=== PATIENT | male | born 1950 | race African-American/Black ===

== ENCOUNTER 2018-01-07 07:52 | Outpatient (CLI) | payer MEDICARE, BC ==
--- NOTE | 2018-01-07 10:05 | RAD ---
PA AND LATEARL VIEWS CHEST: HISTORY: Atrial fibrillation. FINDINGS: Comparison is made with the exam of 06/26/17. The heart size is enlarged. The lungs are expanded without focal areas of consolidation, pneumothora x, or pleural effusions. No parenchymal edema is seen. The nodular density in the left hilar region has been stable since 2007 and is related to prominent pulmonary vasculature. IMPRESSION: No acute process. POS: [facility]
== END 2018-01-07 07:53 | disposition home or self-care (01) ==
LOC: RAD 07:52
PROVIDERS: ATTEND Internal Medicine Cardiovascular Disease
DX: I48.91 Unspecified atrial fibrillation (principal); E78.00 Pure hypercholesterolemia, unspecified
CPT/HCPCS: 36415; 71046; 80053; 80061; 84443

== ENCOUNTER 2018-03-04 15:10 | Observation (INO) | payer MEDICARE, BC ==
[2018-03-04 15:43] LABS: #Basophils 0.1 thou/uL (0.0-0.2); #Eosinphils 0.2 thou/uL (0.0-0.7); #Lymphocytes 2.3 thou/uL (1.20-3.40); #Monocytes 0.7 thou/uL (0.11-0.59); #Neutrophils 6.7 thou/uL (1.40-6.50); %Basophils 0.6 % (0.0-1.0); %Eosinophils 2.4 % (0.0-10.0); %Lymphocytes 23.5 % (21.0-51.0); %Monocytes 6.8 % (0.0-10.0); %Neutrophils 66.7 % (42.0-75.0); Hemoglobin 14.6 g/dL (14.0-18.0); Mean Corpuscular HGB CONC 32.1 g/dL (32.0-36.0); Mean Corpuscular Hemoglobin 29.7 pg (27.0-31.0); Mean Corpuscular Volume 92.8 fl (80.0-94.0); Mean Platelet Volume 8.6 fL (7.4-10.4); Platelet Count 176 thou/uL (130-400); RBC Distribution Width 13.2 % (11.5-14.5); Red Blood Cell (RBC) Count 4.92 mill/uL (4.70-6.10)
[2018-03-04 15:53] LABS: ALT (SGPT) 23 U/L (8-55); AST (SGOT) 21 U/L (5-34); Albumin 4.4 g/dL (3.4-4.8); Alkaline Phosphatase 62 U/L (40-150); Anion Gap 12 mmol/L (10-20); BUN (Urea Nitrogen) 8 mg/dL (8.4-25.7); Bilirubin, Total 0.3 mg/dL (0.2-1.2); CK (CPK) 194 U/L (30-200); Calc. Creatinine Clearance 0 mL/min (70-130); Calcium 9.6 mg/dL (7.8-10.44); Carbon Dioxide 26 mmol/L (23-31); Chloride 104 mmol/L (98-107); Estimated GFR-MDRD Greater than 90; Globulin 3.2 g/dL (2.4-3.5); Glucose 100 mg/dL (80-115); Lipase 29 U/L (8-78); Potassium 4.4 mmol/L (3.5-5.1); Protein, Total 7.6 g/dL (5.8-8.1); Sodium 138 mmol/L (136-145)
[2018-03-04 15:56] LABS: CKMB 1.4 ng/mL (0-6.6); Troponin I Less than 0.010 ng/mL (< 0.028)
--- NOTE | 2018-03-04 16:28 | RAD ---
PORTABLE AP CHEST: Date: 03/04/18 HISTORY: Heart palpitations and chest pain. COMPARISON: 01/07/18. FINDINGS: Cardiac silhouette is enlarged. Epicardial fat pads are again seen at each lung base. Pulmonary vascu lature is within normal limits. The lungs are clear. There has been no interval change from prior exa m. IMPRESSION: No acute cardiopulmonary process. POS: [facility]
[2018-03-04 17:58] VITALS: BMI 45.0
[2018-03-04] MEDS ORDERED: Ondansetron HCl/PF 4 MG/2 ML Vial IVP PRN ×2 (18:08)
[2018-03-04] MEDS ORDERED: Mag-Al 1200 mg/1200 mg/30 ML UDCUP PO PRN (18:08)
[2018-03-04] MEDS ORDERED: Acetaminophen 325 MG TAB PO PRN (18:08)
[2018-03-04] MEDS ORDERED: Bisacodyl 5 MG TAB PO PRN (18:08)
[2018-03-04] MEDS ORDERED: hydrALAZINE 20 MG/ML VIAL SLOW IVP PRN (18:08)
[2018-03-04] MEDS ORDERED: Senokot 8.6 MG TAB PO PRN (18:08)
[2018-03-04] MEDS ORDERED: Calcium Carbonate 500 MG ChewTAB PO PRN (18:08)
[2018-03-04] MEDS ORDERED: traMADol HCl 50 MG TAB PO PRN (18:08)
[2018-03-04] MEDS ORDERED: Nitroglycerin 0.4 MG TAB (25 Tab Bottle) SL PRN (18:08)
[2018-03-04] MEDS ORDERED: cloNIDine 0.1 MG TAB PO PRN (18:08)
[2018-03-04] MEDS ORDERED: Loratadine 10 MG TAB PO PRN (18:08)
[2018-03-04] MEDS ORDERED: Benzonatate 100 MG CAP PO PRN (18:08)
[2018-03-04] MEDS ORDERED: Diabetic Tussin 200 MG/10 ML UDCUP PO PRN (18:08)
[2018-03-04] MEDS ORDERED: Lorazepam 1 MG TAB PO PRN (18:08)
--- NOTE | 2018-03-04 19:00 | HP ---
PRIMARY CARE PHYSICIAN: Efraín Irwin M.D. CHIEF COMPLAINT: Chest discomfort. HISTORY OF PRESENTING ILLNESS: Mr. Mcbride is a very pleasant 67-year-old male with past medica l history of hypertension, dyslipidemia, atrial fibrillation and lymphocytic esophagitis, who present ed to the emergency room with the above-mentioned complaint. History is mainly obtained by the patie nt himself and supplemented by the present in the room. Electronical medical records have been reviewed and the case has been discussed with the admitting ER physician. According to Mr. Mcbride, he has been feeling some dizziness, lightheadedness and palpitations s melissa yesterday. He has longstanding history of atrial fibrillation for the last 10 years. He report s that he underwent a cardiac catheterization and then subsequent cardioversion by Dr. Deleon for a bout 10 years ago and has been doing fairly well. Recently about 2 weeks ago, he was feeling palpita tion and was found to be back in atrial fibrillation. At that time, he was undergoing an EGD for his complaints of dysphagia. He is under the care of Dr. Velazquez for the same. He was found to be in at rial fibrillation at the time of EGD and was referred back to Dr. Deleon. He saw Dr. Deleon 2 we eks ago and was started on Xarelto. He reports that he monitors his blood pressure and heart rate on a daily basis and his blood pressure has been running in the 140s to 150s upper range and his heart rate in the 50s-60s. Since yesterday, he has been having on and off palpitations, dizziness, tiredness and weakness. Toda y, he had significant amount of chest discomfort that would come and go. It was associated with some shortness of breath and continued palpitations and dizziness. He denies any radiation of the pain. It was in the center of the chest and he describes it as a squeezing sensation. He came to the [facility] with this complaint and was found to be quite hypertensive with systolic blood pressure mo re than 200 and diastolic more than 9200. In the ER, his initial workup included a 12-lead EKG, whic h showed normal sinus rhythm with prolonged QT interval of 500 milliseconds for QTc. Other than unco ntrolled hypertension, his blood work was rather unremarkable. His chest x-ray was clear. He otherwise denies any recent illnesses. He denies any orthopnea or PND. He always has the swellin g in his legs, which he reports that has not changed. He denies any fever, chills or shortness of br eath. He denies any dyspnea on exertion. He is compliant with his medications. Please note that he was recently started on combination of naltrexone with bupropion by his pin ticket machine operator, Dr. Sanches in [place] to promote weight loss, so he can have relief from his symptoms of acid reflux. He has undergone E GD at least 2 or 3 times and still remains symptomatic with difficulty due to medicines and feelings of food getting stuck in his throat. He is now being admitted for further workup of his chest pain. PAST MEDICAL HISTORY: 1. Atrial fibrillation. 2. Hypertension. 3. Dyslipidemia. 4. Borderline diabetes mellitus. 5. Obesity. 6. Lymphocytic esophagitis as diagnosed by EGD about 2 weeks ago. PAST SURGICAL HISTORY: 1. Cardiac catheterization. 2. History of cardioversion 10 years ago. 3. Multiple EGDs. 4. Left knee surgery. PSYCHIATRIC HISTORY: None. SOCIAL HISTORY: He has quit smoking and chewing tobacco about 30 years ago. No drug or alcohol abus e. FAMILY HISTORY: The patient has been kind of estranged from his family for the last 30 or 40 years. He does not know the medical history of his family at all. ALLERGIES: No known medication allergies. CURRENT MEDICATIONS: Xarelto 20 mg daily, prednisone 20 mg daily p.r.n. for eczema, meloxicam 50 mg daily, Protonix 40 mg b.i.d., aspirin 81 mg daily, atorvastatin 80 mg daily, amiodarone 200 mg daily, Klor-Con 10 mEq daily, hydralazine 100 mg b.i.d., amlodipine with valsartan combination 5/320 mg eugenio ly and Lasix 80 mg b.i.d. REVIEW OF SYSTEMS: The following complete review of systems was negative, unless otherwise mentioned in the HPI or below: Constitutional: Weight loss or gain, ability to conduct usual activities. Skin: Rash, itching. Eyes: Double vision, pain. ENT/Mouth: Nose bleeding, neck stiffness, pain, tenderness. Cardiovascular: Palpitations, dyspnea on exertion, orthopnea. Respiratory: Shortness of breath, wheezing, cough, hemoptysis, fever or night sweats. Gastrointestinal: Poor appetite, abdominal pain, heartburn, nausea, vomiting, constipation, or diarr hea. Genitourinary: Urgency, frequency, dysuria, nocturia. Musculoskeletal: Pain, swelling. Neurologic/Psychiatric: Anxiety, depression. Allergy/Immunologic: Skin rash, bleeding tendency. LABORATORY AND IMAGING EXAMINATION: CBC is unremarkable. Serum chemistry is unremarkable. CK-MB 1. 4, troponin less than 0.010 x1. Chest x-ray by my review has no evidence to suggest pulmonary edema, effusion or infiltrate. A 12-lead EKG by my review shows normal sinus rhythm at 75 beats per minute , QTc interval of [address] or T-wave changes. PHYSICAL EXAMINATION: VITAL SIGNS: Upon presentation, blood pressure 217/91, temperature 98.8, pulse of 75, respirations 2 0 and saturating 95% on room air. GENERAL: Sitting up on the side of the bed. No acute distress. Awake, alert and oriented x3, very pleasant. HEENT: Mucous membrane is moist and pink. No oropharyngeal exudate or erythema. Head is normocepha lic, atraumatic. Pupils are equal, reactive to light and accommodation. Extraocular movement intact . NECK: Supple without any lymphadenopathy or JVD. CHEST: Clear to auscultation without any wheezing, rales or rhonchi. Rate and rhythm is regular wit hout any murmur, rubs or gallops. ABDOMEN: Soft, nontender and nondistended with positive bowel sounds. No guarding, rebound or rigid ity. EXTREMITIES: Show pitting edema bilaterally in the lower extremities extending up to mid-calf. NEUROLOGIC: Nonfocal. SKIN: Free of any rashes or bruises. Feel warm and dry to touch. PSYCHIATRIC: Normal affect. IMPRESSION AND PLAN: 1. Chest pain. Most likely this is because of uncontrolled hypertension that the patient came with. He has a normal cardiac catheterization done 10 years ago and he is a nonsmoker. The other possibil ity is recurrent paroxysmal atrial fibrillation. At this time, we will obtain a transthoracic echoca rdiogram to ascertain his cardiac function and any valvular abnormality that might be causing uncontr olled hypertension and atrial fibrillation. We will continue to trend serial cardiac enzyme and cont inue aspirin, Lipitor and valsartan at this time. We will also continue his Lasix. He does not appe ar to be in any fluid overload. We will request consultation with his credit coordinator, Dr. Deleon, in the morning. We will make him n.p.o. after midnight in case he needs to get a nuclear medicine stre ss test done as per his recommendations. He reports that he has the cardiac stress test done, but it was a few years ago. At this time, we will hold off on the stress test as his symptoms are not very typical. He will be admitted overnight on telemetry unit to check for any arrhythmias. Sublingual nitroglycerin will be used as needed if his symptoms happen again. At this time, aggressive blood pr essure control needs to be instituted. Some of his symptoms might be secondary to his known history of gastroesophageal reflux disease and dysphagia. At this time, we will continue his proton pump inh ibitor and add H2 blockers to see if he gets any relief. 2. Uncontrolled hypertension. The patient's blood pressure has been fairly well controlled in the o utpatient setting. With his new hypertensive urgency, I suspect that his naltrexone/bupropion might be responsible for some of these effects including the palpitations and uncontrolled hypertension. I have discussed this with the patient and I would recommend stopping this medication. He reports franko t it was prescribed to him by the Physician Hearing Stenographer for the allergies he is seeing. I advised him to discuss this further with his Metal Casket Assembler, Dr. Deleon and his Window Glazier Helper, Dr. Velazquez. 3. Recurrent paroxysmal atrial fibrillation. The patient is currently in normal sinus rhythm but gi ves history of palpitations. He might require a Holter monitor and repeat cardioversion and further evaluation. At this time, we will get the echocardiogram and consult Cardiology for their recommenda tions. Continue his Xarelto. He is rate controlled on amiodarone and we will continue that as well 4. Borderline diabetes mellitus. His blood sugar will be monitored on a daily basis. 5. History of dyslipidemia. We will restart his atorvastatin. 6. Hypertension. Restart home medications and add p.r.n. medications for better blood pressure cont rol. 7. Morbid obesity. BMI not yet calculated. 8. Lymphocytic esophagitis as diagnosed 2 weeks ago by pathology. Continue his proton pump inhibito r as above. 9. CODE STATUS: FULL CODE discussed with the patient. 10. Deep venous thrombosis and gastrointestinal prophylaxis with continuation of Xarelto and proton pump inhibitor. DISPOSITION: Mr. Mcbride is currently being admitted to the hospital for complaints of uncontro lled hypertension and chest pain. Further management will depend upon his clinical course and Cardio logy recommendations.
[2018-03-04 19:22] LABS: Troponin I 0.012 ng/mL (< 0.028)
[2018-03-04] MEDS: hydrALAZINE 25 MG TAB PO SCH (20:44)
[2018-03-04] MEDS: Famotidine 20 MG TAB PO SCH (20:45)
[2018-03-04] MEDS: Atorvastatin Calcium 40 MG TAB PO SCH (20:45)
[2018-03-05 05:54] LABS: #Basophils 0.1 thou/uL (0.0-0.2); #Eosinphils 0.3 thou/uL (0.0-0.7); #Lymphocytes 1.6 thou/uL (1.20-3.40); #Monocytes 0.6 thou/uL (0.11-0.59); #Neutrophils 4.5 thou/uL (1.40-6.50); %Basophils 0.7 % (0.0-1.0); %Lymphocytes 22.4 % (21.0-51.0); %Monocytes 8.6 % (0.0-10.0); %Neutrophils 64.2 % (42.0-75.0); Hemoglobin 13.3 g/dL (14.0-18.0); Mean Corpuscular HGB CONC 31.5 g/dL (32.0-36.0); Mean Corpuscular Hemoglobin 28.3 pg (27.0-31.0); Mean Corpuscular Volume 90.1 fl (80.0-94.0); Mean Platelet Volume 7.4 fL (7.4-10.4); Platelet Count 255 thou/uL (130-400); RBC Distribution Width 13.1 % (11.5-14.5); White Blood Cell (WBC) Count 6.9 thou/uL (4.8-10.8)
[2018-03-05] MEDS ORDERED: Rivaroxaban 10 MG TAB PO SCH ×2 (06:00→17:00)
[2018-03-05 06:02] LABS: Anion Gap 10 mmol/L (10-20); BUN (Urea Nitrogen) 9 mg/dL (8.4-25.7); Calc. Creatinine Clearance 164 mL/min (70-130); Calcium 8.9 mg/dL (7.8-10.44); Carbon Dioxide 27 mmol/L (23-31); Chloride 106 mmol/L (98-107); Estimated GFR-MDRD Greater than 90; Glucose 93 mg/dL (80-115); Potassium 3.3 mmol/L (3.5-5.1); Sodium 140 mmol/L (136-145)
[2018-03-05] MEDS: Amlodipine 5 MG TAB PO SCH (09:12)
[2018-03-05] MEDS: Aspirin 81 mg Enteric Coated Tablet PO SCH (09:12)
[2018-03-05] MEDS: Amiodarone 200 MG TAB PO SCH (09:12)
[2018-03-05] MEDS: Valsartan 80 MG TAB PO SCH (09:13)
[2018-03-05] MEDS: hydrALAZINE 25 MG TAB PO SCH ×2 (09:13→19:59)
[2018-03-05] MEDS: Furosemide 80 MG TAB PO SCH ×2 (09:13→14:16)
[2018-03-05] MEDS ORDERED: predniSONE 20 MG TAB PO PRN (10:41)
--- NOTE | 2018-03-05 10:45 | PDOC.PN ---
- Subjective Encounter Start Date: 03/05/18 Encounter Start Time: 10:43 Subjective: exercise related chest tightness - Objective MAR Reviewed: Yes Vital Signs & Weight: Vital Signs (12 hours) Temp Pulse Resp BP BP Pulse Ox 03/05/18 09:13 52 L 173/80 H 03/05/18 09:12 52 L 173/80 H 03/05/18 07:48 97.9 F 52 L 16 173/80 H 93 L 03/05/18 07:15 97.9 F 52 L 16 03/05/18 03:33 98.1 F 54 L 16 138/67 94 L 03/05/18 00:05 61 18 137/69 96 Weight Weight 296 lb 4.8 oz I&O: 03/04/18 03/05/18 03/06/18 06:59 06:59 06:59 Intake Total 600 Balance 600 Result Diagrams: 03/05/18 05:26 03/05/18 05:26 Phys Exam - Physical Examination Constitutional: NAD Neck: no JVD Respiratory: clear to auscultation bilateral Cardiovascular: RRR, no significant murmur Gastrointestinal: soft, non-tender, positive bowel sounds Musculoskeletal: no edema Dx/Plan (1) Chest pain Code(s): R07.9 - CHEST PAIN, UNSPECIFIED Status: Acute Qualifiers: Chest pain type: precordial pain Qualified Code(s): R07.2 - Precordial pain (2) HTN (hypertension) Code(s): I10 - ESSENTIAL (PRIMARY) HYPERTENSION Status: Chronic Qualifiers: Hypertension type: essential hypertension Qualified Code(s): I10 - Essential (primary) hypertension (3) Atrial fibrillation, controlled Code(s): I48.91 - UNSPECIFIED ATRIAL FIBRILLATION Status: Chronic (4) Anticoagulant long-term use Code(s): Z79.01 - ACCOUNT AUDITOR (CURRENT) USE OF ANTICOAGULANTS Status: Chronic - Plan no st-t abn on EKG, trops nl x2 -: stress test -: cont home meds -: discussed with Dr Deleon * .
[2018-03-05] MEDS: Famotidine 20 MG TAB PO SCH ×2 (11:31→21:27)
[2018-03-05] MEDS ORDERED: Non-Formulary Item 1 EACH (Rivaroxaban [Xarelto] 20 MG) PO SCH ×2 (17:00)
[2018-03-05] MEDS: Mometasone 200 MCG HFA INHALER INH SCH (19:50)
[2018-03-05] MEDS: Atorvastatin Calcium 40 MG TAB PO SCH (19:59)
[2018-03-05] MEDS: Latanoprost 0.005% Ophth Soln 2.5 ml Bottle EA EYE SCH (20:00)
[2018-03-05] MEDS ORDERED: Non-Formulary Item 1 EACH (Hydralazine Hcl [Hydralazine Hcl] 100 MG) PO SCH ×2 (21:00)
[2018-03-05] MEDS ORDERED: BUDESONIDE 1 MG IH SCH ×2 (21:00)
[2018-03-05] MEDS ORDERED: NALTREXONE HCL PO SCH (21:00)
[2018-03-05] MEDS ORDERED: ESOMEPRAZOLE MAGNESIUM 40 MG PO SCH (21:00)
[2018-03-05] MEDS ORDERED: Furosemide 80 MG TAB PO SCH (21:00)
[2018-03-05] MEDS ORDERED: BUPROPION HCL PO SCH (21:00)
[2018-03-06] MEDS ORDERED: Potassium Chloride 10 MEQ TAB PO SCH ×2 (09:00)
[2018-03-06] MEDS ORDERED: Aspirin 81 mg Enteric Coated Tablet PO SCH (09:00)
[2018-03-06] MEDS ORDERED: Amiodarone 200 MG TAB PO SCH (09:00)
[2018-03-06] MEDS ORDERED: Non-Formulary Item 1 EACH (Atorvastatin Calcium [Atorvastatin Calcium] 80 MG) PO SCH ×2 (09:00)
[2018-03-06] MEDS: Valsartan 80 MG TAB PO SCH (10:18)
[2018-03-06] MEDS: Furosemide 80 MG TAB PO SCH ×2 (10:19→13:41)
[2018-03-06] MEDS: Amlodipine 5 MG TAB PO SCH (10:19)
[2018-03-06] MEDS: Aspirin 81 mg Enteric Coated Tablet PO SCH (10:19)
[2018-03-06] MEDS: Meloxicam 15 MG TAB PO SCH (10:19)
[2018-03-06] MEDS: Famotidine 20 MG TAB PO SCH ×2 (10:20→20:40)
[2018-03-06] MEDS: Amiodarone 200 MG TAB PO SCH (10:20)
[2018-03-06] MEDS: hydrALAZINE 25 MG TAB PO SCH ×2 (10:28→20:40)
--- NOTE | 2018-03-06 11:45 | PDOC.PN ---
- Subjective Encounter Start Date: 03/06/18 Encounter Start Time: 11:44 Subjective: feels ok - Objective MAR Reviewed: Yes Vital Signs & Weight: Vital Signs (12 hours) Temp Pulse Resp BP Pulse Ox 03/06/18 10:54 97.9 F 54 L 20 181/81 H 95 03/06/18 07:48 98.1 F 59 L 16 03/06/18 07:05 98 F 51 L 16 163/72 H 93 L 03/06/18 03:59 98.1 F 59 L 16 130/62 92 L Weight Weight 295 lb 14.4 oz I&O: 03/05/18 03/06/18 03/07/18 06:59 06:59 06:59 Intake Total 600 1510 Output Total 2650 200 Balance 600 -1140 -200 Result Diagrams: 03/05/18 05:26 03/05/18 05:26 Phys Exam - Physical Examination Neck: no JVD Respiratory: clear to auscultation bilateral Cardiovascular: RRR, no significant murmur Gastrointestinal: soft, non-tender, positive bowel sounds Musculoskeletal: no edema Dx/Plan (1) Chest pain Code(s): R07.9 - CHEST PAIN, UNSPECIFIED Status: Acute Qualifiers: Chest pain type: precordial pain Qualified Code(s): R07.2 - Precordial pain (2) HTN (hypertension) Code(s): I10 - ESSENTIAL (PRIMARY) HYPERTENSION Status: Chronic Qualifiers: Hypertension type: essential hypertension Qualified Code(s): I10 - Essential (primary) hypertension (3) Atrial fibrillation, controlled Code(s): I48.91 - UNSPECIFIED ATRIAL FIBRILLATION Status: Chronic (4) Anticoagulant long-term use Code(s): Z79.01 - HAT MODEL (CURRENT) USE OF ANTICOAGULANTS Status: Chronic - Plan stress test pending , no reversible defect. echo- nl LVEF -: BP labile * .
--- NOTE | 2018-03-06 14:15 | NM ---
NUCLEAR MEDICINE CARDIAC MYOCARDIAL PERFUSION SPECT EJECTION FRACTION STUDY WALL MOTION CINE: DATE: 03/06/18. HISTORY: A 67-year-old male with chest pain. TECHNIQUE: Number of days: 2. Rest study: Tc99m sestamibi (Cardiolite) dose: 27.0 mCi. Pharmacologic stress: adenosine dose: 75.6 mg. Stress study: Tc99m sestamibi (Cardiolite) dose: 30.9 mCi. FINDINGS: CARDIAC (MYOCARDIAL PERFUSION) SPECT There is a small fixed perfusion defect at the apex, extending a short distance posteriorly into the apicoinferior region. No reversible defect is identified. EJECTION FRACTION STUDY EF = 51% WALL MOTION CINE No focal wall motion abnormality identified. IMPRESSION: 1. No evidence of reversible ischemia. 2. Small apical fixed defect, suggestive of infarction or scar in that location. CARLIN Cole POS: [facility]
--- NOTE | 2018-03-06 14:55 | CON ---
DATE OF CONSULTATION: 03/06/2018 HISTORY: Mr. Javier Mcbride is a 67-year-old -[place] male that I initially evaluated in 08/2003 for palpitations and chest discomfort. When he would be seen at rest, he would feel like thump in his chest, which would last approximately for 1 second. At other times, he would feel chest tightness that would occur with and without exertion and would last approximately 1 minute. He unde rwent Holter monitor, which revealed frequent PVCs, but no evidence of ventricular tachycardia. He d id have occasional supraventricular ectopic beats. He also would have episodes of occasional suprave ntricular tachycardia up to 140 per minute, but was asymptomatic with that. He underwent stress echo testing and exercised for 9 minutes, had no chest discomfort or ST segment changes. EKG was negativ e for ischemia. Echo revealed normal wall motion with ejection fraction of 55%-60% and no evidence o f stress induced ischemia. He had significant caffeine intake at that time, it was recommended that he reduce that and if palpitations continued, then he should be placed on a beta [place]. I did not see him again until 02/2008. He did notice that his heart was fluttering and he also notic ed this more at rest. At times, he would have chest discomfort at rest with the heart fluttering. T his has been occurring for approximately 4 months. When he saw Dr. Irwin, he was found to be in atr ial fibrillation and was placed on Coumadin. He also states his blood pressure had not been well con trolled. He was placed on atenolol 25 mg q.a.m and he stated that his heart was not racing as much a fter starting that. He denied any syncope, lightheadedness or dyspnea on exertion. He did have ches t discomfort and underwent adenosine Cardiolite testing, which revealed inferior and lateral wall isc hemia with ejection fraction of 47% with mild global hypokinesis and moderate decreased myocardial th ickening of the inferior wall. Echo revealed normal left ventricular function with ejection fraction of 50%-55% with moderate mitral regurgitation, mild tricuspid regurgitation and mild pulmonic regurg itation. He underwent cardiac catheterization on 04/21/2008 after his Coumadin was stopped for 4-5 days. This revealed mild left ventricular dysfunction with ejection fraction of 40%-45% and mild mitral regurgi tation. There was a 30% LAD stenosis and mild plaque in the right coronary artery. He was hydrated and then discharged and started back on Coumadin. Numerous options were discussed multiple times about his atrial fibrillation including anticoagulatio n and rate control alone. We discussed electrical cardioversion alone versus adding amiodarone. Ovgeorge geraldo, it was recommended that he be admitted and he was loaded with amiodarone prior to electrical ca rdioversion since he has been in atrial fibrillation, possibly 6 months. The risks of amiodarone the rapy were discussed including , lung toxicity, liver toxicity, thyroid toxicity, eye deposits et c. He understood and agreed to proceed and in 05/2008, he was loaded with amiodarone 400 mg t.i.d. f or 3.5 days. He underwent transesophageal echocardiography, which revealed no evidence of intracardi ac thrombus. He underwent electrical cardioversion. With 200 joules, he remained in atrial fibrilla tion and with 300 joules, he converted to sinus rhythm. He was monitored overnight and did have epis odes of bradycardia with heart rates in the upper 40s, but was asymptomatic with that. Since that time, he has remained in normal sinus rhythm except for an episode of atrial fibrillation during an EGD. His blood pressure at times has been difficult to control as well as his hypercholest erolemia, but overall he has been asymptomatic for the last almost 10 years. He then on the day of a dmission, started to have episodes of chest tightness. This would occur at rest and last approximate ly 30 seconds, but never longer. He also has problems with GERD and has undergone esophageal dilatat ion in the past. He continued to have these episodes and came to the hospital for further evaluation . PAST MEDICAL HISTORY: Hypertension, hypercholesterolemia, borderline diabetes mellitus, atrial fibri llation, but says in sinus rhythm for the last 10 years, obesity, lymphocytic esophagitis. OPERATIONS: Right knee surgery, multiple EGDs, electrical cardioversion. SOCIAL HISTORY: He smoked 1-2 packs per day, but stopped approximately 30 years ago. He also stoppe d drinking alcohol 30 years ago. He had quite a high caffeine intake in the past, drinking 5-10 cups coffee per day as well as 1-2 diet cokes per day; however, he has cut way back on that. He worked a [employer] in the past. FAMILY HISTORY: Father of myocardial infarction at age 68. No family history of CABG or sudden . REVIEW OF SYSTEMS: Twelve point review of systems otherwise is unremarkable. PHYSICAL EXAMINATION: VITAL SIGNS: Blood pressure 159/74, pulse of 64. HEENT: PERRL. NECK: Supple. There is no jugular venous distention. LUNGS: Chest is clear. CARDIAC: S1, S2 normal, without any S3, S4 or murmurs. Carotid upstrokes normal without bruits. ABDOMEN: Normal bowel sounds, without tenderness or organomegaly. The abdomen is obese. EXTREMITIES: Revealed no clubbing, cyanosis or edema. NEUROLOGIC: Grossly intact. SKIN: Warm and dry. LABORATORY DATA AND IMAGING: EKG revealed normal sinus rhythm with prolonged QT, but otherwise unrem arkable. Hemoglobin 13.3, hematocrit 42.4, white count 6900, platelets 255,000. Sodium 138, potassi um 4.4, chloride 104, carbon dioxide 26, BUN 8, creatinine 0.91. Cardiac enzymes are normal. IMPRESSION: 1. Atypical chest discomfort with pain lasting only 30 seconds, not related to exertion. He has had negative cardiac enzymes. 2. History of atrial fibrillation with cardioversion in 05/2008 since he remained in sinus rhythm si nce that time. However, he has been maintained on Xarelto and amiodarone. 3. Minimal coronary artery disease on catheterization in 04/2008. 4. Hypertension, poorly controlled. 5. Hypercholesterolemia, which has been under poor control. 6. Former smoker. 7. Positive family history. 8. High caffeine intake in the past. 9. Lymphocytic esophagitis with history of esophageal dilatation. 10. History of borderline diabetes. 11. Morbid obesity. RECOMMENDATIONS: Antihypertensive medications will be increased. He will undergo Cardiolite testing to further evaluate his atypical chest discomfort. Xarelto will be held since he is in normal sinus rhythm at this time and may potentially require cardiac catheterization depending upon the outcome o f the two day Cardiolite testing.
[2018-03-06] MEDS ORDERED: Amlodipine 5 MG TAB PO SCH (19:00)
[2018-03-06] MEDS: Mometasone 200 MCG HFA INHALER INH SCH (19:52)
[2018-03-06] MEDS: Atorvastatin Calcium 40 MG TAB PO SCH (20:40)
[2018-03-06] MEDS: Latanoprost 0.005% Ophth Soln 2.5 ml Bottle EA EYE SCH (20:41)
[2018-03-07 05:01] LABS: Platelet Count 241 thou/uL (130-400)
[2018-03-07 07:42] VITALS: TEMP 98.3
[2018-03-07] MEDS: hydrALAZINE 25 MG TAB PO SCH (08:07)
[2018-03-07] MEDS: Amiodarone 200 MG TAB PO SCH (08:08)
[2018-03-07] MEDS: Famotidine 20 MG TAB PO SCH (08:09)
[2018-03-07] MEDS: Valsartan 80 MG TAB PO SCH (08:09)
[2018-03-07] MEDS: Meloxicam 15 MG TAB PO SCH (08:09)
[2018-03-07] MEDS: Aspirin 81 mg Enteric Coated Tablet PO SCH (08:10)
[2018-03-07] MEDS: Furosemide 80 MG TAB PO SCH (08:10)
[2018-03-07] MEDS ORDERED: Amlodipine 10 MG TAB PO SCH (09:00)
[2018-03-07 09:41] VITALS: BP 149/72
--- NOTE | 2018-03-07 12:50 | DIS ---
DATE OF ADMISSION: 03/04/2018 DATE OF DISCHARGE: 03/07/2018 PRIMARY CARE PROVIDER: Dr. Efraní Irwin. DISCHARGE DISPOSITION: Home. FINAL DIAGNOSES: Chest pain, noncardiac; hypertension, uncontrolled; atrial fibrillation; dyslipidemia; chronic anticoagulation; lymphocytic esophagitis. DISCHARGE MEDICATIONS: Budesonide 1 mg inhaled twice a day, Lasix 80 mg twice a day, hydralazine 100 mg twice a day, Klor-Con 10 mEq a day, Cordarone 200 mg a day, prednisone 20 mg a day, atorvastatin 80 mg a day, Meloxicam 15 mg a day, Contrave 2 b.i.d., Xarelto 20 mg twice a day, Nexium 40 mg a day, aspirin 81 mg a day, amlodipine/valsartan 10/320 once a day. ALLERGIES: No known drug allergies. PENDING AT THE TIME OF DISCHARGE: Nothing. CODE STATUS: FULL. HOSPITAL COURSE: [facility] with chest discomfort with exertion. LABORATORY DATA AND IMAGING: At the time of admission, cardiac enzymes were normal x3. Comprehensive metabolic profile was normal. CBC was unremarkable. Dr. Vu Deleon was consulted, his efficiency clerk. Nuclear medicine stress test was done, which revealed only a fixed defect, no wall motion abnormality, no reversible defect. Echocardiogram was done, which revealed LVEF of 50%-55%, some suggestion of diastolic dysfunction. DISCHARGE INSTRUCTIONS: The patient's blood pressure medicines were adjusted. Currently, he is feeling well, is doing well. He is being discharged for daily blood pressure medicine and to be followed up by Dr. Deloen in 1 month for followup. It has been recommended that he follow up with his PCP, Dr. Efraín Irwin in 1 week. No procedures were done. [facility]
== END 2018-03-07 11:00 | disposition home or self-care (01) ==
LOC: ERS 15:10 → 2SW 16:37
PROVIDERS: ADMIT Internal Medicine; ATTEND Internal Medicine
DX: R07.89 Other chest pain (principal); I10 Essential (primary) hypertension; E78.5 Hyperlipidemia, unspecified; K20.8 Other esophagitis; R73.03 Prediabetes; E66.01 Morbid (severe) obesity due to excess calories; I48.0 Paroxysmal atrial fibrillation; E78.00 Pure hypercholesterolemia, unspecified; I25.10 Atherosclerotic heart disease of native coronary artery without angina pectoris; Z68.41 Body mass index [BMI] 40.0-44.9, adult; Z79.01 Long term (current) use of anticoagulants; Z79.82 Long term (current) use of aspirin; Z79.1 Long term (current) use of non-steroidal anti-inflammatories (NSAID); Z79.899 Other long term (current) drug therapy; Z98.890 Other specified postprocedural states; Z87.891 Personal history of nicotine dependence
CPT/HCPCS: 71045; 78452; 80048; 80053; 82550; 82553; 82565; 83690; 84484 ×2; 85014; 85018; 85025 ×2; 85049; 93005; 93017; 93306; 94640 ×2; 94664; 94760; 96374; 97139 ×3; 99285; A9500; G0378 ×2; 36415; J0153; J0360

== ENCOUNTER 2018-06-20 09:12 | Outpatient (CLI) | payer MEDICARE, BC ==
--- NOTE | 2018-06-20 10:53 | RAD ---
CHEST PA AND LATERAL: History: 67-year-old male with history of coronary artery disease. Comparison: 01-07-18 FINDINGS: Upper range of normal sized heart. No confluent pneumonia, overt edema, or pleural effusion. Biapical pleural thickening. IMPRESSION: No significant acute intrathoracic disease. Borderline sized heart. Biapical pleural thickening, stab le. Atherosclerosis of the aorta. POS: [facility]
== END 2018-06-20 09:13 | disposition home or self-care (01) ==
LOC: RAD 09:12
PROVIDERS: ATTEND Internal Medicine Cardiovascular Disease
DX: I25.10 Atherosclerotic heart disease of native coronary artery without angina pectoris (principal); I70.0 Atherosclerosis of aorta; J92.9 Pleural plaque without asbestos
CPT/HCPCS: 36415; 71046; 80053; 80061; 84443

== ENCOUNTER 2019-01-29 07:54 | Outpatient (CLI) | payer MEDICARE, BC ==
--- NOTE | 2019-01-29 08:14 | RAD ---
TWO VIEWS CHEST: HISTORY: Heart disease. FINDINGS: PA and lateral views of the chest are obtained on 01/29/2019. Comparison is made to previous exam fro m 06/20/2018. Two views chest demonstrate mild cardiomegaly. Pulmonary vascular congestion is seen. No evidence o f effusions, pneumonia, or pneumothorax is seen. IMPRESSION: Cardiomegaly and pulmonary vascular congestion. POS: [facility]
== END 2019-01-29 07:55 | disposition home or self-care (01) ==
LOC: RAD 07:54
PROVIDERS: ATTEND Internal Medicine Cardiovascular Disease
DX: I25.10 Atherosclerotic heart disease of native coronary artery without angina pectoris (principal); R09.89 Other specified symptoms and signs involving the circulatory and respiratory systems; I51.7 Cardiomegaly; Z82.49 Family history of ischemic heart disease and other diseases of the circulatory system
CPT/HCPCS: 36415; 71046; 80053; 80061; 82043; 83036; 84443

== ENCOUNTER 2019-09-11 08:10 | Outpatient (CLI) | payer MEDICARE, BC ==
--- NOTE | 2019-09-11 08:35 | RAD ---
XR Chest Pa Lat @ [facility] HISTORY: Atrial fibrillation COMPARISON: 01/29/2019 FINDINGS: The heart size is enlarged. The lungs are well expanded without focal areas of consolidatio n, pneumothorax or pleural effusions.There is no evidence of lucie pulmonary edema. IMPRESSION: No radiographic evidence of acute cardiopulmonary process.
== END 2019-09-11 08:11 | disposition home or self-care (01) ==
LOC: RAD 08:10
PROVIDERS: ATTEND Internal Medicine Cardiovascular Disease
DX: I48.91 Unspecified atrial fibrillation (principal)
CPT/HCPCS: 36415; 71046; 80053; 80061; 84443

== ENCOUNTER 2020-09-21 06:24 | Outpatient (CLI) | payer MEDICARE, BC ==
[2020-09-22 12:56] LABS: SARS-CoV-2 MS2 Positive; SARS-CoV-2 N Gene Negative; SARS-CoV-2 S Gene Negative; SARS-CoV-2 by NAA Not Detected (NotDetected); SARS-CoV-2 orf1ab Negative
== END 2020-09-21 06:25 | disposition home or self-care (01) ==
LOC: LABBT 06:24
PROVIDERS: ATTEND Internal Medicine Gastroenterology
DX: K21.00 Gastro-esophageal reflux disease with esophagitis, without bleeding (principal); Z86.010 Personal history of colon polyps; Z20.828 Contact with and (suspected) exposure to other viral communicable diseases
CPT/HCPCS: 87635; U0003

== ENCOUNTER 2020-09-24 06:52 | Day surgery (SDC) | payer MEDICARE, BC ==
[2020-09-23 10:44] VITALS: BMI 47.0
[2020-09-24] MEDS ORDERED: Lidocaine 1% PF 5 ML VIAL ONE (10:14)
[2020-09-24] MEDS ORDERED: PROPOFOL 200 MG/20 ML VIAL ONE (10:14)
--- NOTE | 2020-09-24 10:49 | OP ---
DATE OF PROCEDURE: 09/24/2020 PREPROCEDURE DIAGNOSES: 1. History of lymphocytic esophagitis. 2. Personal history of colon polyps. 3. Dysphagia. PROCEDURES PERFORMED: 1. Esophagogastroduodenoscopy with biopsy of esophagus and dilatation with 54 and 60-[place] German dilators. 2. Colonoscopy and polypectomy. POSTPROCEDURE DIAGNOSES: 1. Mild distal esophagitis. Biopsy of the GE junction, distal third of the esophagus, atypical appearance, consistent with prior diagnosis of lymphocytic rule out Barney's. 2. Effective dilatation noted after dilation with the 60-[place] dilator in the pharyngeal region with mucosal laceration, no perforation. 3. Two polyps in the ascending colon, 5 mm in size, removed by cold snare polypectomy and submitted to Pathology. RECOMMENDATIONS: 1. Repeat colonoscopy in 5 years. 2. Await histopathology. 3. Follow up in the office in 6 weeks. ANESTHESIA: TIVA. DESCRIPTION OF PROCEDURE: After the patient was informed of the risks, benefits, and possible complications of endoscopy including perforation, bleeding, reaction to medication, aspiration, informed consent was obtained. The patient was brought to endoscopy suite, where he was sedated in gradual fashion. Once he was comfortable, a bite block was placed in the incisural orifice. The endoscope was advanced through the esophagus, stomach, into the second and third portions of the duodenum and slowly removed. The duodenum and stomach appeared normal, and the stomach was normal in forward and retroflexed views with normal distention. The distal esophagus was notable for a crepe-paper appearance and slight loss of vascular pattern. There was no overt stricture seen. Empiric dilatation with 54-[place] German dilator showed no effect. Dilation with 60-[place] dilator was performed with minimal resistance, but there was some effect in the proximal cervical esophagus region after dilatation with some mucosal laceration, but no overt bleeding or perforation. Biopsies were taken from the distal esophagus, GE junction to rule out short-segment Barney's. The scope was removed. The patient was turned to the room and rectal exam was performed, which was normal. The endoscope was advanced to the anal canal through the colon to the cecum, which was identified by the ileocecal valve and appendiceal orifice. The ileocecal valve appeared normal. The prep was good. There were two diminutive polyps about 5 mm in size and sessile, located in the ascending colon. These were removed by cold snare polypectomy and submitted to Pathology. Retroflexed views in the rectum were normal. There was mild diverticulosis coli noted as well. The scope was removed and the patient was brought to recovery room in stable condition. Job ID: [id number]
== END 2020-09-24 10:30 | disposition home or self-care (01) ==
LOC: SDC 06:52
PROVIDERS: ATTEND Internal Medicine Gastroenterology
PROC: 0DBK8ZZ Excision of Ascending Colon, Via Natural or Artificial Opening Endoscopic (ICD-10-PCS; principal; 2020-09-24)
PROC: 0DB48ZX Excision of Esophagogastric Junction, Via Natural or Artificial Opening Endoscopic, Diagnostic (ICD-10-PCS; 2020-09-24)
PROC: 0D747ZZ Dilation of Esophagogastric Junction, Via Natural or Artificial Opening (ICD-10-PCS; 2020-09-24)
DX: Z12.11 Encounter for screening for malignant neoplasm of colon (principal); D12.2 Benign neoplasm of ascending colon; K21.00 Gastro-esophageal reflux disease with esophagitis, without bleeding; E78.00 Pure hypercholesterolemia, unspecified; E66.9 Obesity, unspecified; I48.91 Unspecified atrial fibrillation; M19.90 Unspecified osteoarthritis, unspecified site; Z86.010 Personal history of colon polyps; Z68.42 Body mass index [BMI] 45.0-49.9, adult; Z79.82 Long term (current) use of aspirin; Z79.01 Long term (current) use of anticoagulants; Z79.899 Other long term (current) drug therapy
CPT/HCPCS: 88305; 88312; 88313; J2704

== ENCOUNTER 2021-10-18 09:52 | Outpatient (CLI) | payer MEDICARE | END 2021-10-18 09:53 | disposition home or self-care (01) | LOC: DTY/OP 09:52 | PROVIDERS: ATTEND Family Medicine | DX: E66.01 Morbid (severe) obesity due to excess calories (principal); E11.59 Type 2 diabetes mellitus with other circulatory complications | CPT/HCPCS: 97802 ==

== ENCOUNTER 2021-11-16 07:45 | Outpatient (CLI) | payer MEDICARE | END 2021-11-16 07:46 | disposition home or self-care (01) | LOC: DTY/OP 07:45 | PROVIDERS: ATTEND Family Medicine | DX: E66.01 Morbid (severe) obesity due to excess calories (principal); E11.59 Type 2 diabetes mellitus with other circulatory complications | CPT/HCPCS: 97802 ==

== ENCOUNTER 2021-12-14 08:45 | Outpatient (CLI) | payer MEDICARE | END 2021-12-14 08:46 | disposition home or self-care (01) | LOC: DTY/OP 08:45 | PROVIDERS: ATTEND Family Medicine | DX: E11.59 Type 2 diabetes mellitus with other circulatory complications (principal); E66.01 Morbid (severe) obesity due to excess calories | CPT/HCPCS: 97802 ==

== ENCOUNTER 2022-07-03 09:05 | Outpatient (CLI) | payer MEDICARE | END 2022-07-03 09:06 | disposition home or self-care (01) | LOC: BICRAD 09:05 | PROVIDERS: ATTEND Nurse Practitioner Family | DX: I48.91 Unspecified atrial fibrillation (principal); E78.00 Pure hypercholesterolemia, unspecified | CPT/HCPCS: 36415; 71046; 80053; 80061; 84443 ==

== ENCOUNTER 2022-10-16 09:07 | Outpatient (CLI) | payer MEDICARE | END 2022-10-16 09:08 | disposition home or self-care (01) | LOC: BICRAD 09:07 | PROVIDERS: ATTEND Family Medicine | DX: M54.50 Low back pain, unspecified (principal); M47.896 Other spondylosis, lumbar region | CPT/HCPCS: 72100 ==